=== PATIENT | male | born 1940 | race Caucasian/White ===

== ENCOUNTER 2016-08-02 23:35 | Inpatient (IN) | payer MEDICARE ==
--- NOTE | ~2016-08-02 | CN ---
Consultation Report [facility] [address] [place]. [address] NAME: MAGEN DANG JR : 44 STATUS : ADM IN PAT#: [id number] AGE: 76 ADM/REG DATE : 08/03/16 MR#: [id number] REPORT SERV DATE: 08/05/16 DICTATED BY: DAVIDE MOROCHO MARK SANDERS DATE: 08/05/16 REPORT STATUS : Draft TRANSCRIBED BY: MODNelly DATE: 08/05/16 CONSULTATION DATE OF CONSULTATION: 08/05/2016 REASON FOR CONSULTATION: Suspected myeloma. CLINICIAN REQUESTING CONSULTATION: Dr. Oliveira. CHIEF COMPLAINT: Abnormal kidney. HISTORY OF PRESENT ILLNESS: Mr. Dang is a 76-year-old white male with a history of chronic kidney disease stage 3, hypertension, BPH, and dyslipidemia. He was admitted to [facility] with worsening renal function. On admission on 07/27/2016, his creatinine was 4.59. Renal was consulted. He was transferred to [facility], and on 08/03/2016, he had a kidney biopsy with preliminary revealing light chain cast nephropathy. I was consulted for myeloma workup. In addition to his abnormal kidney function, he is noted to have anemia with a hemoglobin of 8.7 g today. He denies significant complaints other than fatigue. He does not have bone pain. He is not short of breath or have chest pain. He denies any GI symptoms. He reports no hematuria. A serum protein electrophoresis reveals 2 M-spikes, one at 1.68 g and the other at 0.08 g. Immunofixation reveals a monoclonal IgA lambda, an IgG lambda, and a free lambda. An immunofixation of the urine reveals a faint monoclonal IgA lambda and free lambda. His 24-hour urine protein has 2391 mg of protein over 12 hours. PAST MEDICAL HISTORY: 1. Hypertension. 2. Chronic kidney disease stage 3. 3. BPH. 4. Dyslipidemia. HOME MEDICATIONS: Reviewed on chart. ALLERGIES: NO KNOWN DRUG ALLERGIES. SOCIAL HISTORY: He quit smoking 30 years ago. He does not drink alcohol. He lives with his who I previously saw for anemia. FAMILY HISTORY: The patient is unsure of this, but no known blood disorders. REVIEW OF SYSTEMS: 12-point review of systems negative except as per HPI. PHYSICAL EXAMINATION: Consultation Report [place] [id number] [facility] [place]. [address] NAME: MAGEN DANG JR : 44 STATUS : ADM IN PAT#: [id number] AGE: 76 ADM/REG DATE : 08/03/16 MR#: [id number] REPORT SERV DATE: 08/05/16 DICTATED BY: DAVIDE MOROCHO MARK SANDERS DATE: 08/05/16 REPORT STATUS : Draft TRANSCRIBED BY: EMILIA DATE: 08/05/16 VITAL SIGNS: Blood pressure 144/77, pulse 67, temperature 98.0. GENERAL APPEARANCE: Well developed, well nourished, no acute distress. HEENT: Anicteric sclerae. Oropharynx clear. NECK: Supple. No lymphadenopathy. CARDIOVASCULAR: Regular rate and rhythm. Normal S1, S2. LUNGS: Clear to auscultation bilaterally. Fair effort. ABDOMEN: Soft, nontender. No organomegaly. EXTREMITIES: No clubbing, cyanosis, or edema. LABORATORY DATA: White count 5700, hemoglobin 8.7 g, platelets 129,000. Creatinine 4.14. Total protein 7.5, albumin 2.7, calcium 9.0. ASSESSMENT AND PLAN: Mr. Dang is a 76-year-old white male who presents with acute on chronic renal failure. Renal biopsy is consistent with a light chain nephropathy. SPEP reveals an IgA lambda M-spike of 1.68 g. Additionally, he has anemia. All of these are concerning for multiple myeloma. I have discussed this with the patient and his . I have recommended a bone marrow biopsy today as well as a skeletal survey. I also discussed initiation of Velcade therapy, most likely to start tomorrow along with steroids. It is unclear to me at this time if he is a transplant candidate or not; however, I feel that it is prudent to get the Velcade started with his renal dysfunction. Thank you for the consultation. We will continue to follow with you. HARSHA/EMILIA Jerrell Morocho IV, M.D. / [id number] CC: MD Kathi Bloom M.D.
--- NOTE | ~2016-08-02 | DS ---
Discharge Summary [facility] [address] [place]. [address] NAME: MAGEN VAZQUEZ JR : 44 STATUS : DIS IN PAT#: [id number] AGE: 76 ADM/REG DATE : 08/03/16 MR#: [id number] REPORT SERV DATE: 08/06/16 DICTATED BY: BAN WILSON DATE: 08/05/16 REPORT STATUS : Draft TRANSCRIBED BY: MODL DATE: 08/05/16 ADMISSION DATE: 08/03/2016 DISCHARGE DATE: 08/05/2016 HOSPITAL COURSE: The patient is a 76-year-old male with a history of chronic kidney disease, diabetes type 2, hyperlipidemia, and BPH, who was admitted to the [facility] due to acute kidney injury. The patient was subsequently transferred to [facility] secondary to need for a kidney biopsy. For further details, please refer to interim discharge summary dictated at the [facility] on 08/03/2016. Upon transfer to the [facility], the patient was admitted under Hospitalist Service given the need for a biopsy. Of note, transfer process was initiated by Dr. Bentley. Upon arrival to the [facility], the patient had a kidney biopsy, which was performed on 08/03/2016. Pathology report came back noting light chain cast nephropathy. Given this finding, Oncology was subsequently consulted. For further details, please refer to consultation note dictated by Dr. Alcocer on 08/05/2016. The patient had a bone survey performed today 08/05/2016. From Oncology standpoint, therapy is scheduled to start tomorrow. The patient has remained hemodynamically stable throughout this entire process. He is cleared by Nephrology for discharge as well as Oncology for discharge with plans for therapy to start tomorrow. The patient will present to oncologist's office tomorrow morning for initiation of therapy. Plan has been discussed with the patient who voices understanding and is agreeable with this plan. DISCHARGE DIAGNOSES: 1. Chronic kidney disease stage V. 2. Acute kidney injury secondary to light chain cast nephropathy. 3. Diabetes type 2. 4. Hyperlipidemia. 5. Benign prostatic hypertrophy. 6. Vitamin B12 deficiency. DISCHARGE PHYSICAL EXAMINATION: VITAL SIGNS: Blood pressure 132/70 with a pulse of 66, respirations 20, and O2 sat on room air 96%. GENERAL: The patient lying in bed and appears stated age, very pleasant, in no acute distress. HEENT: Normocephalic, atraumatic. Extraocular motors intact. Pupils are reactive to light and accommodation. Oral mucosa moist. NECK: Trachea midline and symmetric. No JVD noted. No thyromegaly present. No lymphadenopathy palpated. CHEST: No scars noted. Nontender to palpation. CARDIOVASCULAR: Regular rate and rhythm. S1, S2. No murmurs, rubs, or gallops. LUNGS: Clear to auscultation bilaterally. No added breath sounds. ABDOMEN: Positive bowel sounds. Nontender. Nondistended. No masses palpated. EXTREMITIES: No cyanosis. No clubbing. No edema. NEUROLOGIC: Alert and oriented x3. No focal deficits appreciated. DISCHARGE MEDICATIONS: Atenolol 100 mg p.o. daily, atorvastatin 20 mg p.o. daily, tamsulosin Discharge Summary [address] [address] NAME: MAGEN VAZQUEZ JR : 44 STATUS : DIS IN PAT#: [id number] AGE: 76 ADM/REG DATE : 08/03/16 MR#: [id number] REPORT SERV DATE: 08/06/16 DICTATED BY: BAN WILSON DATE: 08/05/16 REPORT STATUS : Draft TRANSCRIBED BY: EMILIA DATE: 08/05/16 0.4 mg p.o. at bedtime. PROCEDURES: Kidney biopsy on 08/03/2016. Bone survey on 08/05/2016. CONSULTANTS: Nephrology, Dr. Bentley; Oncology, Dr. Alcocer. DISPOSITION: The patient will be discharged home to follow up with Oncology tomorrow as outpatient. ACTIVITY: As tolerated. DIET: Diabetic diet. Greater than 30 minutes was spent providing counseling, dictation of note, medication reconciliation. DICTATED BY: MD CHRISSY Bloom/EMILIA Ban Wilson MD / [id number] CC: MD Kathi Bloom M.D.
[~2016-08-02 23:35] MED LIST: ATEN100 PO; FLOMAX4 PO; FORTAMET500 MG PO; HYZAAR 100/25 T1 TAB PO; LIPITOR20 PO
[2016-08-03 03:59] LABS: BASOPHILS 0.2 %; BASOPHILS ABSOLUTE 0.01 10/3/uL (0.0-0.16); EOSINOPHILS 1.4 %; EOSINOPHILS ABSOLUTE 0.08 10/3/uL (0.0-0.53); HEMATOCRIT 25.8 % (40.0-51.0); HEMOGLOBIN 8.9 g/dL (13.6-17.8); IMMATURE GRANULOCYTES 0.2 %; IMMATURE GRANULOCYTES ABSOLUTE 0.01 10/3/uL (0.0-0.11); LYMPHOCYTES 30.3 %; LYMPHOCYTES ABSOLUTE 1.76 10/3/uL (0.67-4.30); MEAN CORPUSCULAR HEMOGLOB 30.6 pg (26.0-34.0); MEAN PLATELET VOLUME 9.9 fL (9.2-13.0); MONOCYTES 13.1 %; MONOCYTES ABSOLUTE 0.76 10/3/uL (0.21-1.20); NEUTROPHILS 54.8 %; NEUTROPHILS ABSOLUTE 3.18 10/3/uL (2.02-8.40); PLATELET COUNT 131 10/3/uL (150-400); RBC DISTRIBUTION WIDTH 13.3 % (12.0-16.0); RED CELL COUNT 2.91 10/6/uL (4.7-6.1); WHITE BLOOD CELLS 5.8 10/3/uL (4.5-10.5)
[2016-08-03 04:01] LABS: MANUAL DIFF NO %; MEAN CORPUS HGB CONC 34.5 g/dL (32.0-36.0); MEAN CORPUSCULAR VOLUME 88.7 fL (80-100)
[2016-08-03 04:07] LABS: INTERNATIONAL NORMAL RATI 1.2 UNITS (-); PROTIME (NOT ORD) 14.8 SEC (12.0-14.5)
[2016-08-03 04:10] LABS: ALBUMIN 2.9 G/DL (3.5-5.0); BUN (BLOOD UREA NITROGEN) 58 MG/DL (6-23); CALCIUM, SERUM 8.9 MG/DL (8.5-10.4); CHLORIDE, SERUM 104 MMOL/L (96-112); CO2 (CARBON DIOXIDE) 25 MMOL/L (24-34); CREATININE 4.32 MG/DL (0.70-1.30); GFR AFRICAN AMERICAN 15 ML/MIN (>=60); GFR NON AFRICAN AMERICAN 13 ML/MIN (>=60); GLUCOSE, SERUM 95 MG/DL (60-99); PHOSPHORUS, SERUM 4.5 MG/DL (2.5-4.5); POTASSIUM, SERUM 4.1 MMOL/L (3.5-5.3); SODIUM, SERUM 140 MMOL/L (135-148)
[2016-08-03 16:26] LABS: HEMATOCRIT 26.1 % (40.0-51.0); HEMOGLOBIN 8.9 g/dL (13.6-17.8)
[2016-08-04 06:35] LABS: BASOPHILS 0.2 %; BASOPHILS ABSOLUTE 0.01 10/3/uL (0.0-0.16); EOSINOPHILS 1.1 %; EOSINOPHILS ABSOLUTE 0.06 10/3/uL (0.0-0.53); HEMATOCRIT 25.5 % (40.0-51.0); HEMOGLOBIN 8.6 g/dL (13.6-17.8); IMMATURE GRANULOCYTES 0.5 %; IMMATURE GRANULOCYTES ABSOLUTE 0.03 10/3/uL (0.0-0.11); LYMPHOCYTES 30.2 %; LYMPHOCYTES ABSOLUTE 1.71 10/3/uL (0.67-4.30); MEAN CORPUS HGB CONC 33.7 g/dL (32.0-36.0); MEAN CORPUSCULAR HEMOGLOB 30.4 pg (26.0-34.0); MEAN CORPUSCULAR VOLUME 90.1 fL (80-100); MEAN PLATELET VOLUME 9.9 fL (9.2-13.0); MONOCYTES 12.4 %; NEUTROPHILS 55.6 %; NEUTROPHILS ABSOLUTE 3.15 10/3/uL (2.02-8.40); PLATELET COUNT 125 10/3/uL (150-400); RBC DISTRIBUTION WIDTH 13.3 % (12.0-16.0); RED CELL COUNT 2.83 10/6/uL (4.7-6.1); WHITE BLOOD CELLS 5.7 10/3/uL (4.5-10.5)
[2016-08-04 06:36] LABS: MANUAL DIFF NO %
[2016-08-05 05:18] LABS: A/G RATIO 0.6 (0.7-1.9); ALBUMIN 2.7 G/DL (3.5-5.0); ALKALINE PHOSPHATASE 85 U/L (45-117); BUN (BLOOD UREA NITROGEN) 56 MG/DL (6-23); CHLORIDE, SERUM 108 MMOL/L (96-112); CO2 (CARBON DIOXIDE) 24 MMOL/L (24-34); CREATININE 4.14 MG/DL (0.70-1.30); GFR AFRICAN AMERICAN 15 ML/MIN (>=60); GFR NON AFRICAN AMERICAN 13 ML/MIN (>=60); GLOBULIN 4.8 G/DL (2.5-4.1); GLUCOSE, SERUM 92 MG/DL (60-99); POTASSIUM, SERUM 4.4 MMOL/L (3.5-5.3); SGOT(AST) 52 U/L (5-40); SGPT(ALT) 56 U/L (5-65); SODIUM, SERUM 142 MMOL/L (135-148); TOTAL PROTEIN 7.5 G/DL (6.0-8.5)
[2016-08-05 05:38] LABS: BASOPHILS 0.2 %; BASOPHILS ABSOLUTE 0.01 10/3/uL (0.0-0.16); EOSINOPHILS 1.5 %; EOSINOPHILS ABSOLUTE 0.08 10/3/uL (0.0-0.53); HEMATOCRIT 26.1 % (40.0-51.0); HEMOGLOBIN 8.7 g/dL (13.6-17.8); IMMATURE GRANULOCYTES 0.7 %; IMMATURE GRANULOCYTES ABSOLUTE 0.04 10/3/uL (0.0-0.11); LYMPHOCYTES 28.1 %; LYMPHOCYTES ABSOLUTE 1.54 10/3/uL (0.67-4.30); MEAN CORPUS HGB CONC 33.3 g/dL (32.0-36.0); MEAN CORPUSCULAR HEMOGLOB 30.2 pg (26.0-34.0); MEAN CORPUSCULAR VOLUME 90.6 fL (80-100); MEAN PLATELET VOLUME 10.4 fL (9.2-13.0); MONOCYTES 12.4 %; MONOCYTES ABSOLUTE 0.68 10/3/uL (0.21-1.20); NEUTROPHILS 57.1 %; NEUTROPHILS ABSOLUTE 3.14 10/3/uL (2.02-8.40); PLATELET COUNT 129 10/3/uL (150-400); RBC DISTRIBUTION WIDTH 13.2 % (12.0-16.0); RED CELL COUNT 2.88 10/6/uL (4.7-6.1); WHITE BLOOD CELLS 5.5 10/3/uL (4.5-10.5)
[2016-08-05 05:40] LABS: MANUAL DIFF NO %
[2016-08-05 08:46] LABS: RETICULOCYTE COUNT ABSOLUTE 29.5 10/3/uL (20.2-119.8)
[2016-08-07 07:05] LABS: KAPPA FLC 1.76 mg/dL (0.33-1.94)
== END 2016-08-05 18:42 | disposition home or self-care (01) | DRG 687 ==
LOC: 4SO 23:35
PROVIDERS: Hospitalist; Internal Medicine Hematology & Oncology; Internal Medicine Nephrology
PROC: 0TB13ZX Excision of Left Kidney, Percutaneous Approach, Diagnostic (ICD-10-PCS; principal; 2016-08-03)
PROC: 07DR3ZX Extraction of Iliac Bone Marrow, Percutaneous Approach, Diagnostic (ICD-10-PCS; 2016-08-05)
DX: D41.02 Neoplasm of uncertain behavior of left kidney (principal); N17.8 Other acute kidney failure; I12.0 Hypertensive chronic kidney disease with stage 5 chronic kidney disease or end stage renal disease; N18.5 Chronic kidney disease, stage 5; E11.22 Type 2 diabetes mellitus with diabetic chronic kidney disease; E53.8 Deficiency of other specified B group vitamins; D63.1 Anemia in chronic kidney disease; E78.5 Hyperlipidemia, unspecified; N40.0 Benign prostatic hyperplasia without lower urinary tract symptoms; Z87.891 Personal history of nicotine dependence; Z79.84 Long term (current) use of oral hypoglycemic drugs
CPT/HCPCS: 36415; 50200; 70486; 71020; 74176; 76775; 77012; 77075; 80048; 80053; 80069; 80074; 81001; 81050; 82232; 82272; 82550; 82570; 82607; 82728; 82746; 83540; 83550; 83735; 83883; 83883-59; 83935; 84153; 84155; 84156; 84165; 84300; 84443; 84550; 85014; 85018; 85025; 85045; 85610; 85730; 86039; 86160; 86334; 86335; 86850; 86900; 86901; 87389; 88305; 88311; 88313; 88346; 88348; 88350; 88367; A9270-GY; J2250; J3010